=== PATIENT | female | born 1955 | race Caucasian/White ===

== ENCOUNTER → 2017-09-03 | Day surgery (SDC) | payer OTHER ==
[~2017-09-03] VITALS: Ht 157.5 cm; Wt 75.2 kg
[~2017-09-03] MED LIST: *morphine SULFATE 8 MG/ML PERIprocedure ONLY ONE; ACETAMINOPHEN/HYDROcodone 325 MG/7.5 MG TAB PO PRN; ASPI81TA23 PO; BUPIVACAINE HCL PF 0.5% 30 ML VIAL ONE; BUPIVACAINE/EPINEPHRINE 0.25% PF 30 ML VIAL ONE; CHLORHEXIDINE GLUCONATE 2 % 1 PACK (2 CLOTHS) TOPICAL PRN; CHRO1000 PO; DO NOT ADM ANY ANTICOAGULANT DRUGS PRN; GENTAMICIN SULFATE 80 MG/2 ML VIAL ONE; HYDR-3366 PO; LACTATED RINGER'S 1000 ML IV PRN; LEXA20TA PO; LIDOCAINE HCL 1% PF 5 ML SYRINGE OTHER ONE; METO25TA3 PO; METOPROLOL TARTRATE 25 MG TAB PO PRN; MIDAZOLAM HCL 2 MG/2 ML VIAL IV ONE; MORPHINE SULFATE 4 MG/ML INJ IV PUSH PRN; NEOMYCIN/POLYMYXIN 1 ML G.U. IRRIGANT ONE; ONDANSETRON HCL 4 MG/2 ML VIAL IV ONE; PANT20TA2 PO; PERC5TAB12 PO; POVIDONE IODINE 5% (ANTISEPSIS KIT) 4 APPLICATIONS EACH NARE PRN; POVIDONE IODINE 7.5% SCRUB 118 ML BOTTLE TOPICAL SCH; PROPOFOL 200 MG/20 ML AMP IV ONE; SODIUM CHLORID 0.9% 500 ML IV PRN; SODIUM CHLORIDE 0.9% FLUSH 10 ML FLUSH IV FLUSH PRN; SODIUM CHLORIDE 0.9% FLUSH 10 ML FLUSH IV FLUSH SCH; TIZA4CAP3 PO; ePHEDrine/NS 25 MG/5 ML SYRINGE IV ONE
[2017-09-03] MEDS: ceFAZolin 2 GM PREMIX 50 ML IV SCH ×2 (13:46→15:03)
--- NOTE | 2017-09-03 14:41 | EKG ---
Date Performed: 09/03/2017 Time Performed: 11:47:42 PTAGE: 62 years EKG: ECTOPIC SINUS BRADYCARDIA VOLTAGE CRITERIA FOR LVH ST DEVIATION AND MODERATE T-WAVE ABNORMA LITY, CONSIDER ANTERIOR ISCHEMIA ABNORMAL ECG NO PREVIOUS TRACING DOCTOR: Puneet Quinn Interpretating Date/Time 09/03/2017 14:40:48
--- NOTE | 2017-09-03 15:02 | PD.OP ---
cc: Sacha Fisher MD Operative Report Date of Surgery: Sep 03, 2017 Preoperative Diagnosis: Right distal radius intra-articular three-part fracture. Postoperative Diagnosis: Same Procedure: Right distal radius fracture, 3 part intra-articular open reduction and internal fixation Anesthesia: Gen. Surgeon: Sacha Fisher Corridor Redevelopment Manager(s): LANA Garcia The surgical procedure was assisted by my Advanced Registered Nurse Practitioner. My HEALTH AND WELLNESS SALES CONSULTANT presence was necessary throughout this case for the manipulation and positioning of the surgical extremity. My HEALTH AND WELLNESS SALES CONSULTANT was assisting me throughout the duration of this procedure. The skill set of an Advance Registered Nurse Practitioner was medically necessary to complete this procedure. During the surgical case, the surgical elastic knitter hand frame was working at the back table and the Advance Registered Nurse Practitioner was directly assisting me. Operation and Findings: Tourniquet time: 14 minutes at 250 mmHg of pressure Estimated blood loss: 5 cc The patient received intravenous Ancef. After the appropriate anesthesia was administered, the patient's arm was prepped and draped in the usual sterile fashion. Local anesthetic was given, and the arm was exsanguinated. The tourniquet was raised to 250 mmHg of pressure. We made a standard incision over the volar aspect of the forearm. We then dissected through the flexor carpi radialis sub- sheath. The pronator quadratus was reflected. We now visualized the distal radius fracture very well. The fracture was anatomically reduced both visually and via fluoroscopy. We provisionally held the fracture reduced and then applied a Synthes precontoured distal radius plate into the appropriate position. The plate was secured to the distal radius first with the sliding screw hole. This was then followed by locking screws distally and proximally. Note that on the proximal aspect we used just one locking screw. The other 2 screws were nonlocking screws. We took final fluoroscopic imaging of the wrist. We found no intra-articular penetration of the screws. The patient had full range of motion of the wrist with no crepitus. The tourniquet was released and hemostasis was achieved. The patient had a 2+ radial pulse. We irrigated the incision thoroughly. We then closed skin with 2 -0 Vicryl followed by 3-0 nylon. The arm was dressed and a volar splint was applied. The postoperative plan is to start early range of motion of the wrist. Sacha Fisher MD Sep 03, 2017 15:02
--- NOTE | 2017-09-03 15:15 | RADRPT ---
EXAM DATE/TIME: 09/03/2017 14:47 [facility] COMPARISON: No previous studies available for comparison. INDICATIONS : ORIF rt wrist. MEDICAL HISTORY : None. SURGICAL HISTORY : None. ENCOUNTER: Subsequent ACUITY: 1 day PAIN SCORE: Non-responsive. LOCATION: Right Wrist FINDINGS: Two intraprocedural fluoroscopy images of the wrist. Plate and screw fixation of the distal radius. H ardware appears well-positioned. There is near-anatomic alignment. No significant displaced fracture fragments. Questionable ulnar styloid fracture. Remaining osseous structures are intact. CONCLUSION: 1. Distal right radial ORIF, as above. Koffi Quiñonez MD on September 03, 2017 at 15:12 Board Certified Radiologist. This report was verified electronically.
[2017-09-03 18:05] VITALS: BP 155/82; PULSE 62; RESP 16; TEMP 97.8; O2SAT 98
== END | disposition home or self-care (01) ==
LOC: HSDC 10:42
PROVIDERS: ATTEND Orthopaedic Surgery
DX: S52.571A Other intraarticular fracture of lower end of right radius, initial encounter for closed fracture (principal); R94.31 Abnormal electrocardiogram [ECG] [EKG]; W19.XXXA Unspecified fall, initial encounter; Y93.89 Activity, other specified; Y92.22 Religious institution as the place of occurrence of the external cause
CPT/HCPCS: 01830; 25609; 73100; 76000; 93005; C1713; J0690; J1580; J2250; J2270; J2405; J3010; J7120